=== PATIENT | male | born 1935 | race Two or more races ===

== ENCOUNTER 2021-11-19 06:54 | Day surgery (SDC) | payer OTHER, MEDICAID ==
[~2021-11-19] VITALS: Ht 162.6 cm; Wt 77.1 kg
[~2021-11-19 06:54] MED LIST: AMLO-496 PO; ATOR40TA52 PO; BACL10TA PO; BALS750C6 PO; CARV12.544 PO; CHOL20002 PO; CLOP75TA28 PO; EZET10TA22 PO; FERR-20 PO; FOLI1TAB6 PO; GABA100C9 PO; LOSA-39 PO; OMEP20TA PO; POM PO; SUCR1TAB PO; TAMS0.4C36 PO; VITA180C PO
[2021-11-19] MEDS ORDERED: HEPARIN SODIUM (PORCINE) 5000 UNITS/ML 1ML VIAL ONE (09:14)
[2021-11-19] MEDS ORDERED: VERAPAMIL 2.5MG/ML INJ 2ML VIAL IV ONE (09:15)
[2021-11-19] MEDS ORDERED: fentaNYL CITRATE 100 MCG/2 ML VL ONE (09:15)
[2021-11-19] MEDS ORDERED: MIDAZOLAM HCL 2MG/2ML 2ml VIAL (1mg/ml) ONE (09:15)
[2021-11-19] MEDS ORDERED: LIDOCAINE 2%HCL (LOCAL ANESTH.) INJ 20ML MDV ONE ×2 (09:21→09:45)
[2021-11-19] MEDS ORDERED: IOHEXOL 350 MG/ML 100ML IJ ONE (09:21)
[2021-11-19] MEDS ORDERED: IODIXANOL 320MG/ML 100ML BTL IV ONE ×2 (09:43→10:18)
[2021-11-19] MEDS ORDERED: SODIUM CHL 0.9% 50 ML ONE (10:06)
[2021-11-19] MEDS ORDERED: ANGIOMAX 250 MG VIAL IV ONE (10:06)
[2021-11-19] MEDS ORDERED: EPINEPHrine HCL 1 MG/10 ML SYRG ONE (10:12)
[2021-11-19] MEDS ORDERED: ATROPINE SULF 1 MG/10ml SYR ONE (10:12)
[2021-11-19] MEDS ORDERED: ASPirin 325 MG TAB ONE (10:23)
[2021-11-19] MEDS ORDERED: CLOPIDOGREL 300 MG TAB ONE (10:23)
[2021-11-19] MEDS ORDERED: TICAGRELOR 90 MG TAB ONE (10:35)
[2021-11-19] MEDS ORDERED: hydrALAZINE HCL 20 MG/ML VL ONE (10:37)
== END 2021-11-19 13:37 | disposition home or self-care (01) ==
LOC: CATH 06:54
PROVIDERS: ATTEND Internal Medicine Cardiovascular Disease
DX: I25.10 Atherosclerotic heart disease of native coronary artery without angina pectoris (principal); I10 Essential (primary) hypertension; Z87.891 Personal history of nicotine dependence; Z20.822 Contact with and (suspected) exposure to COVID-19
CPT/HCPCS: 93458; C1725; C1760; C1769; C1874; C1887; C1894; C9600; J0360; J0583; J1644; J2250; J3010; J7040; Q9967; U0003; 99152; 99153